=== PATIENT | female | born 1980 | race Caucasian/White ===

== ENCOUNTER → 2020-08-13 | Outpatient (CLI) | payer OTHER, SELFPAY ==
[2020-08-13 09:32] VITALS: BMI 30.9
[2020-08-15 04:12] LABS: Chlamydia By Nucleic Acid AMP Negative (Negative)
[2020-08-15 15:46] LABS: Gonococcus By Nucleic Acid AMP Negative (Negative)
[2020-08-16 12:41] LABS: HPV APTIMA, High Risk Negative (Negative)
== END | disposition home or self-care (01) ==
LOC: LABSPEC 12:50
PROVIDERS: PCP Internal Medicine; Referring Provider Nurse Practitioner Women's Health; Visit Provider Nurse Practitioner Women's Health
DX: N89.8 Other specified noninflammatory disorders of vagina (principal); Z12.4 Encounter for screening for malignant neoplasm of cervix; Z11.3 Encounter for screening for infections with a predominantly sexual mode of transmission
CPT/HCPCS: 87070; 87077; 87205; 87491; 87591; 87624; 88175; G0145